=== PATIENT | female | born 1985 | race Caucasian/White ===

== ENCOUNTER 2018-07-12 21:50 | Inpatient (IN) | payer BC ==
[~2018-07-12] VITALS: Ht 160 cm; Wt 102.7 kg
[2018-07-12] MEDS ORDERED: PRENATAL 191 CTB PO (22:15)
[2018-07-12] MEDS ORDERED: FERROUS SU325 MG/TAB PO (22:15)
[2018-07-12 22:30] VITALS: BP 122/72; PULSE 59; TEMP 98.6
[2018-07-13] VITALS (44 sets, daily range): BP systolic 84–153; BP diastolic 43–92; PULSE 52–121; TEMP 97.9–99.2
[2018-07-13 01:13] LABS: BASO % 0.2 % (0.0-2.0); EOS # 0.1 (0.0-0.7); EOS % 0.6 % (0-4.0); GRAN # 7.7 (1.4-6.5); GRAN % 80.8 % (42.2-75.2); HEMATOCRIT 37.4 % (37.0-47.0); HEMOGLOBIN 12.6 g/dl (12.5-16.0); LYMPH # 1.3 (1.2-3.4); MEAN CELL VOLUME 84 fl (80.0-100.0); MEAN CORPUSCULAR HEMOGLOBIN 28 pg (27.0-31.0); MEAN CORPUSCULAR HGB CONC 34 g/dl (33.0-37.0); MEAN PLATELET VOLUME 12.3 fl (7.4-10.4); MONO # 0.4 (0.1-0.6); MONO % 3.9 % (1.7-9.3); PLATELET COUNT 136 K/mm3 (130-400); RED BLOOD COUNT 4.45 M/mm3 (4.10-5.30)
[2018-07-13] MEDS ORDERED: PERCOCET 325 MG1 TA2 PO (08:29)
[2018-07-13] MEDS ORDERED: MOTRIN 800800 MG/TAB PO (08:29)
[2018-07-14 08:45] VITALS: BP 126/68; PULSE 88; TEMP 97.9
== END 2018-07-14 13:20 | disposition home or self-care (01) | DRG 806 ==
LOC: LDRO 21:50 → LDR 07-13 00:25 → OB 07-13 13:00
PROVIDERS: Student in an Organized Health Care Education/Training Program
PROC: 10E0XZZ Delivery of Products of Conception, External Approach (ICD-10-PCS; principal; 2018-07-13)
PROC: 0KQM0ZZ Repair Perineum Muscle, Open Approach (ICD-10-PCS; 2018-07-13)
DX: O77.0 Labor and delivery complicated by meconium in amniotic fluid (principal); O99.12 Other diseases of the blood and blood-forming organs and certain disorders involving the immune mechanism complicating childbirth; Z37.0 Single live birth; Z3A.39 39 weeks gestation of pregnancy; O70.1 Second degree perineal laceration during delivery; O69.2XX0 Labor and delivery complicated by other cord entanglement, with compression, not applicable or unspecified; O99.214 Obesity complicating childbirth; O99.02 Anemia complicating childbirth; D69.6 Thrombocytopenia, unspecified
CPT/HCPCS: J0690; J2405; J2590; J7120

== ENCOUNTER 2023-10-11 18:39 | Emergency (ER) | payer BC ==
[~2023-10-11] VITALS: Ht 160 cm; Wt 79.5 kg
[~2023-10-11 18:39] MED LIST: FERROUS SU325 MG/TAB PO; MOTRIN 800800 MG/TAB PO; PERCOCET 325 MG1 TA2 PO; PRENATAL 191 CTB PO
[2023-10-11 18:44] VITALS: TEMP 98.1
[2023-10-11 19:00] LABS: BASO % 0.4 % (0.0-2.0); EOS # 0.2 K/mm3 (0.0-0.7); EOS % 2.3 % (0.0-4.0); GRAN # 4.5 K/mm3 (1.4-6.5); GRAN % 57.7 % (42.2-75.2); HEMATOCRIT 43.2 % (37.0-47.0); HEMOGLOBIN 14.1 g/dl (12.5-16.0); LYMPH # 2.5 K/mm3 (1.2-3.4); LYMPH % 31.8 % (20.0-51.0); MEAN CELL VOLUME 85 fl (80.0-100.0); MEAN CORPUSCULAR HEMOGLOBIN 28 pg (27-31); MEAN CORPUSCULAR HGB CONC 33 g/dl (33.0-37.0); MEAN PLATELET VOLUME 10.8 fl (7.4-10.4); MONO # 0.6 K/mm3 (0.1-0.6); MONO % 7.5 % (1.7-9.3); PLATELET COUNT 178 K/mm3 (130-400); REDCELL DISTRIBUTION WIDTH-CV 12.5 % (11.5-14.5)
[2023-10-11 19:29] LABS: ALANINE AMINOTRANSFERASE 15 U/L (0-55); ALBUMIN 4.1 gm/dL (3.5-5.0); ALKALINE PHOSPHATASE 47 U/L (40-150); ANION GAP 15 mmol/L (7-16); AST,SGOT 13 U/L (5-34); BILIRUBIN,TOTAL 0.4 mg/dL (0.2-1.2); BLOOD UREA NITROGEN 14 mg/dL (7-19); C-REACTIVE PROTEIN 0.36 mg/dL (0.00-0.50); CALCIUM 9.6 mg/dL (8.4-10.2); CARBON DIOXIDE 18 mmol/L (22-29); CHLORIDE 107 mmol/L (98-107); CREATININE, serum 0.74 mg/dL (0.57-1.11); GLUCOSE 101 mg/dL (70-99); POTASSIUM 3.2 mmol/L (3.5-4.5); SODIUM 140 mmol/L (136-145); TOTAL PROTEIN 7.7 gm/dL (6.2-8.1)
[2023-10-11 19:37] LABS: TROPONIN-I < 0.010 ng/mL (0.00-0.033)
[2023-10-11 21:03] VITALS: BP 128/78; PULSE 81
== END 2023-10-11 21:00 | disposition home or self-care (01) ==
LOC: COL.ER 18:39
PROVIDERS: Family Medicine
DX: R00.0 Tachycardia, unspecified (principal); R07.89 Other chest pain
CPT/HCPCS: J7120

== ENCOUNTER → 2023-10-27 | Outpatient (CLI) | payer BC | LOC: COL.RAD 10:46 | DX: R10.11 Right upper quadrant pain (principal) ==